=== PATIENT | male | born 1990 | race Hispanic/Latino ===

== ENCOUNTER 2018-01-19 13:19 | Emergency (ER) | payer OTHER ==
[2018-01-19] MEDS ORDERED: DiphenhydrAMINE 50 mg/ml Inj IVP STA (13:26)
--- NOTE | 2018-01-19 13:32 | C.PDOC ---
History Of Present Illness 27 year old male with a Hx of autism presents to the ER with grease maker for a complaint of severe skin redness and rash after ingesting pistachios today. Patient has a Hx of peanut allergy. Chemical Operator denies patient has had tongue swelling or SOB. Time Seen by Provider: 01/19/18 13:25 Chief Complaint (Nursing): Allergic Reaction History Per: Family History/Exam Limitations: no limitations Onset/Duration Of Symptoms: Hrs Current Symptoms Are (Timing): Still Present Possible Cause: Food (pistachio) Associated Symptoms: Skin Rash, Redness Home/EMS Treatment: Benadryl Recent travel outside of the [place]: No Past Medical History Reviewed: Historical Data, Nursing Documentation, Vital Signs Family History: States: Unknown Family Hx - Social History Hx Alcohol Use: No Hx Substance Use: No - Immunization History Hx Tetanus Toxoid Vaccination: No Hx Influenza Vaccination: No Hx Pneumococcal Vaccination: No Review Of Systems Review Of Systems: ROS cannot be obtained secondary to pt's inabilty to answer questions. Physical Exam - Physical Exam Appears: Non-toxic Skin: Warm, Dry, Rash (Diffuse erythematous. No sores.) Head: Atraumatic, Normacephalic Eye(s): bilateral: Normal Inspection Oral Mucosa: Moist Tongue: Normal Appearing, No Swelling Lips: Normal Appearing, No Swelling Throat: Normal, No Erythema, No Other (Swelling) Neck: Normal, Supple Chest: Symmetrical, No Tenderness Cardiovascular: Rhythm Regular Respiratory: Normal Breath Sounds, No Accessory Muscle Use, No Rales, No Rhonchi , No Wheezing Gastrointestinal/Abdominal: Soft, No Tenderness Neurological/Psych: Other (At baseline as per grease maker) Medical Decision Making Medical Decision Making: Assessment: Allergic reaction Plan: * Benadryl * Solumedrol * Pepcid On reevaluation, patient is found sleeping in no distress, symptoms have improved, will discharge home and grease maker instructed to follow up with PMD. Disposition Counseled Patient/Family Regarding: Studies Performed, Diagnosis, Need For Followup, Rx Given - Disposition Referrals: [facility] [Outside] Disposition: HOME/ ROUTINE Disposition Time: 15:55 Condition: IMPROVED Additional Instructions: follow up with your doctor or medical clinic within 2 days call to make an appointment take medications as prescribed benadryl as needed for rash and itch return to ER if symptoms worsens or progress Prescriptions: predniSONE [predniSONE Tab] 50 mg PO DAILY #4 tab Instructions: Hives, Food Allergy Forms: [facility] ([place]uan), General Discharge Instructions - Clinical Impression Clinical Impression: Allergy to peanuts - Scribe Statement The provider has reviewed the documentation as recorded by the Darwinibjessica Tatum All medical record entries made by the Darwinibjessica were at my direction and personally dictated by me. I have reviewed the chart and agree that the record accurately reflects my personal performance of the history, physical exam, medical decision making, and the department course for this patient. I have also personally directed, reviewed, and agree with the discharge instructions and disposition.
[2018-01-19] MEDS ORDERED: Sodium Chloride 0.9% 1,000 ML IV ONE (13:56)
[2018-01-19 14:54] VITALS: BP 119/70; PULSE 73; RESP 18; TEMP 98.8; O2SAT 99
== END 2018-01-19 15:00 | disposition home or self-care (01) ==
LOC: C.ER 13:19
DX: T78.1XXA Other adverse food reactions, not elsewhere classified, initial encounter (principal)
CPT/HCPCS: 96361; 96374; 96375; 99284; J1200; J2930; J7030